=== PATIENT | male | born 1985 | race Caucasian/White ===

== ENCOUNTER 2020-09-27 12:58 | Emergency (ER) | payer OTHER ==
[~2020-09-27] VITALS: Ht 170.2 cm; Wt 65.0 kg
[2020-09-27] MEDS ORDERED: HYDROcodone/acetaminophen 5mg/325mg tablet PO ONE ×2 (13:20→16:05)
[2020-09-27 14:03] VITALS: BP 103/58
--- NOTE | 2020-09-27 14:15 | NUR ---
PATIENT SEEN BY PA IN TRIAGE. XRAYS DONE PRIOR TO TRIAGE. NORCO [address] GIV[address] PO. AWAITING LAB TESTS. PA TO RE EVALUATE.
[2020-09-27] MEDS ORDERED: ketorolac trometh inj. 60 MG/2 ML VIAL IM ONE (16:05)
[2020-09-27] MEDS ORDERED: OXYC-145 PO (17:24)
== END 2020-09-27 17:57 | disposition home or self-care (01) ==
LOC: ER 12:58
DX: S62.002A Unspecified fracture of navicular [scaphoid] bone of left wrist, initial encounter for closed fracture (principal); S92.424A Nondisplaced fracture of distal phalanx of right great toe, initial encounter for closed fracture; S93.401A Sprain of unspecified ligament of right ankle, initial encounter; S89.92XA Unspecified injury of left lower leg, initial encounter; V86.56XA Driver of dirt bike or motor/cross bike injured in nontraffic accident, initial encounter; Y93.89 Activity, other specified; Y92.89 Other specified places as the place of occurrence of the external cause; Y99.8 Other external cause status; Z87.81 Personal history of (healed) traumatic fracture; Z79.899 Other long term (current) drug therapy
CPT/HCPCS: 29125; 73110; 73564; 73610; 73660; 96372; 99284; J1885